=== PATIENT | male | born 1990 | race African-American/Black ===

== ENCOUNTER 2021-01-20 14:47 | Emergency (ER) | payer OTHER, SELFPAY ==
[~2021-01-20] VITALS: Ht 180.3 cm; Wt 99.8 kg
[2021-01-20 15:23] VITALS: BP 110/65
[2021-01-20] MEDS ORDERED: ALBU0.0912 IH (16:33)
[2021-01-20] MEDS ORDERED: PROM118S5 PO (16:33)
[2021-01-20] MEDS ORDERED: NAPR-54 PO (16:33)
[2021-01-20 17:09] VITALS: BP 110/65
--- NOTE | 2021-01-20 17:10 | NUR ---
Patient discharged with v/s stable. Written and verbal after care instructions given and explained. Patient alert, oriented and verbalized understanding of instructions. Ambulatory with steady gait. All questions addressed prior to discharge. ID band removed. Patient advised to follow up with PMD. Rx of ALBUTEROL, NAPROXEN, PROMETHAZINE given. Patient educated on indication of medication including possible reaction and side effects. Opportunity to ask questions provided and answered.
== END 2021-01-20 17:10 | disposition home or self-care (01) ==
LOC: MED 14:47
DX: U07.1 COVID-19 (principal)
CPT/HCPCS: 71045; 99283